=== PATIENT | male | born 1975 ===

== ENCOUNTER 2018-07-12 00:48 | Emergency (ER) | payer SELFPAY ==
[2018-07-12 00:56] VITALS: BMI 30.1
--- NOTE | 2018-07-12 01:26 | ED PDOC ---
HPI: Psych/Substance Abuse Time Seen by Provider: 07/12/18 01:16 Chief Complaint (Nursing): Weakness/Neurological Deficit Chief Complaint (Provider): Weakness/Neurological Deficit ED Caveat: Intoxicated History Per: Patient History/Exam Limitations: intoxication Onset/Duration Of Symptoms: Mins Current Symptoms Are (Timing): Still Present Modifying Factor(s): Alcohol Additional Complaint(s): 42 y/o male with no significant PMHx presents to the ED for evaluation of right arm numbness, onset 30 minutes prior to arrival. Patient reports numbness is associated with headache and dizziness. Patient is visibly intoxicated and admits to drinking alcohol today. Otherwise, patient denies pain, trauma and drug use. PMD: non H Provider Past Medical History Reviewed: Historical Data, Nursing Documentation, Vital Signs Vital Signs: Last Vital Signs Temp 98.0 F 07/12/18 00:59 Pulse 94 H 07/12/18 00:59 Resp 18 07/12/18 00:59 BP 135/87 07/12/18 00:59 Pulse Ox 96 07/12/18 00:59 - Medical History PMH: No Chronic Diseases Denies: Chronic Kidney Disease - Surgical History Surgical History: No Surg Hx - Family History Family History: States: Unknown Family Hx - Social History Alcohol: > 2 Drinks/Day - Home Medications Home Medications: Ambulatory Orders Medication Instructions Recorded RX: Ibuprofen [Motrin Tab] 600 mg PO Q8 #30 tab 10/25/17 - Allergies Allergies/Adverse Reactions: Allergies Allergy/AdvReac Type Severity Reaction Status Date / Time No Known Allergies Allergy Unverified 07/12/18 00:58 Review of Systems ROS Statement: Except As Marked, All Systems Reviewed And Found Negative Neurological: Positive for: Numbness (RIGHT ARM ), Headache, Dizziness Psych: Positive for: Other (ETOH INTOXICATION) Physical Exam - Reviewed Nursing Documentation Reviewed: Yes Vital Signs Reviewed: Yes - Physical Exam Appears: Positive for: No Acute Distress (but visibly intoxicated) Head Exam: Positive for: ATRAUMATIC Skin: Negative for: Normal Color (skin is flushed), Rash Eye Exam: Positive for: PERRL, Conjunctival injection Cardiovascular/Chest: Positive for: Regular Rate, Rhythm. Negative for: Murmur Respiratory: Positive for: Normal Breath Sounds. Negative for: Respiratory Dist ress Extremity: Negative for: Deformity Neurologic/Psych: Positive for: Alert, Oriented, Other (slurred speech). Negative for: Motor/Sensory Deficits - Laboratory Results Result Diagrams: 07/12/18 01:50 07/12/18 01:50 - ECG O2 Sat by Pulse Oximetry: 96 (RA) Pulse Ox Interpretation: Normal Medical Decision Making Medical Decision Making: Time: 124 A/P: New onset right arm numbness and headache in context of intoxication. Due to distracting factors, it is unclear if inability to follow directions is organic vs. alcohol related. -- Basic labs -- CT brain -- Reassess patient -- CT Head w/o Contrast -- Alcohol Serum -- BMP -- CBC with differentials Time: 218 CT RESULTS TECHNIQUE: Axial and reformatted sagittal and coronal images of the brain obtained without IV contrast administration. Normal size of the ventricles and extra-axial spaces for the patient's age. Normal white matter tracts of the supratentorial brain. Normal basal ganglia and thalami. Normal brainstem. Normal cerebellum. There is no demonstrated extra-axial, intraparenchymal, or intraventricular hemorrhage. There are no findings of an acute ischemic infarction. Normal calvarium. There is no demonstrated fracture. Normal soft tissue structures. Normal visualized paranasal sinuses. IMPRESSION: Normal unenhanced CT scan of the brain. Electronically signed on Jul 12, 2018 2:19:20 AM EST by: Anali Wick M.D., Certified by BERTA HENRY, Neuroradiology Time: 521 -- Patient is clinically sober, ambulating without deficits. Labs and Brain CT otherwise within normal limits. Patient to follow up with PMD. Scribe Attestation: Documented by Lisy Odom, acting as a scribe for Paula Tam MD. Provider Scribe Attestation: All medical record entries made by the Scribe were at my direction and personally dictated by me. I have reviewed the chart and agree that the record accurately reflects my personal performance of the history, physical exam, medical decision making, and the department course for this patient. I have also personally directed, reviewed, and agree with the discharge instructions and disposition. Disposition - Clinical Impression Clinical Impression: Alcohol abuse, Arm pain, musculoskeletal - Patient ED Disposition Is Patient to be Admitted: No Counseled Patient/Family Regarding: Studies Performed, Diagnosis, Need For Followup - Disposition Disposition: Routine/Home Disposition Time: 05:22 Condition: STABLE Additional Instructions: Seek medical help for alcohol rehabilitation. Follow up with primary medical doctor. Instructions: Alcohol Use - When Is Drinking a Problem?, Alcohol Abuse and Alcoholism (DC), Effects of Alcohol on Your Health Forms: [employer] (Welsh) Print Language: KHMER
[2018-07-12 02:00] LABS: EOS # 0.1 K/uL (0.0-0.7); EOS % 3.1 % (0.0-4.0); HEMOGLOBIN 14.7 g/dL (12.0-18.0); LYMPH # 2.2 K/uL (1.0-4.3); LYMPH % 54.2 % (20.0-40.0); MEAN CELL VOLUME 95.5 fl (80.0-94.0); MEAN CORPUSCULAR HEMOGLOBIN 32.1 pg (27.0-31.0); MEAN CORPUSCULAR HGB CONC 33.7 g/dL (33.0-37.0); MEAN PLATELET VOLUME 7.4 fl (7.2-11.7); MONO # 0.3 K/uL (0.0-0.8); MONO % 6.4 % (0.0-10.0); NEUT # 1.5 K/uL (1.8-7.0); NEUT % 35.3 % (50.0-75.0); RBC 4.58 Mil/uL (4.40-5.90); RED CELL DISTRIBUTION WIDTH 13.6 % (11.5-14.5); WHITE BLOOD COUNT 4.1 K/uL (4.8-10.8)
[2018-07-12 02:10] LABS: BLOOD UREA NITROGEN 7 mg/dl (9-20); CALCIUM 8.6 mg/dL (8.4-10.2); GFR NON-AFRICAN AMERICAN > 60
[2018-07-12 05:30] VITALS: BP 132/80; PULSE 92; RESP 16; TEMP 98.9
--- NOTE | 2018-07-12 09:02 | CT ---
Date of service: 07/12/2018 PROCEDURE: CT HEAD WITHOUT CONTRAST. HISTORY: KWONG and right arm numbness COMPARISON: None available. TECHNIQUE: Axial computed tomography images were obtained through the head/brain without intravenous contrast. Radiation dose: Total exam DLP = 822.49 mGy-cm. This CT exam was performed using one or more of the following dose reduction techniques: Automated exposure control, adjustment of the mA and/or kV according to patient size, and/or use of iterative reconstruction technique. FINDINGS: HEMORRHAGE: No intracranial hemorrhage. BRAIN: No mass effect or edema. No atrophy or chronic microvascular ischemic changes. VENTRICLES: Unremarkable. No hydrocephalus. CALVARIUM: Unremarkable. PARANASAL SINUSES: Minimal bilateral chronic maxillary sinusitis. MASTOID AIR CELLS: Unremarkable as visualized. No inflammatory changes. OTHER FINDINGS: None. IMPRESSION: No intracranial mass, hemorrhage or evidence of acute infarct. Minimal chronic bilateral maxillary sinusitis. The preliminary findings for this examination were reported by [facility] at 2:19 a.m. on 07/12/2018. There is concurrence of this report with the preliminary findings.
[2018-07-15 11:22] VITALS: O2SAT 96
== END 2018-07-12 05:30 | disposition home or self-care (01) ==
LOC: H.ER 00:48
DX: F10.10 Alcohol abuse, uncomplicated (principal); R20.2 Paresthesia of skin; R51 Headache
CPT/HCPCS: 70450; 80048; 82948; 85025; 99283; G0480